=== PATIENT | female | born 1960 | race Caucasian/White ===

== ENCOUNTER → 2016-09-25 | Outpatient (CLI) | payer BC ==
[~2016-09-25] MED LIST: ASPI-999 PO; BUDE0.5A IH; CITA40TA19; CPR500T PO; DULO60CA6 PO; ESTR1TAB27 PO; GABA600T2 PO; GBPN100C PO; HYDR1TAB PO; HYDR200T46 PO; HYDR480S10 GT; IPRA3AMP19 IH; MEDR2.5T6 PO; MELO15TA14 PO; METO10TA3; METR500T PO; MILN100T PO; OMEP40CA36 PO; POTA20TA15 PO; PREG25CA; TELM1TAB3 PO; TELM40T; TELM80TA5 PO
--- OUTSIDE RECORDS SUMMARY | 2016-09-25 14:09 | XMS REPORT | Continuity of Care Document ---
Author Author [facility] Organization [facility] Address Unknown Phone Unavailable Allergies Active Description Code Type Severity Reaction Onset Reported/Identified Relationship to Patient Clinical Status Yes Sulfa (Sulfonamide Antibiotics) [id number] Drug Allergy Unknown HIVES 05/15/2015 Medications Problems Date Dx Coded Attending Type Code Diagnosis Diagnosed By 12/23/2009 Ot 288.60 12/23/2009 Ot 401.9 12/23/2009 Ot 483.0 12/23/2009 Ot 493.92 12/23/2009 Ot 695.4 12/23/2009 Ot 723.1 12/23/2009 Ot 724.5 12/23/2009 Ot 729.1 12/23/2009 Ot 785.0 12/23/2009 Ot E932.0 03/18/2011 Ot 530.81 ESOPHAGEAL REFLUX 03/18/2011 Ot 535.40 OTH SPECIFIED GASTRITIS,W/O MENTION OF H 03/18/2011 Ot 710.0 SYST LUPUS ERYTHEMATOSIS 03/18/2011 Ot V10.82 HX-MALIG SKIN MELANOMA 03/18/2011 Ot V58.69 OTH MED,LT,CURRENT USE 08/28/2011 Ot 401.9 HYPERTENSION NOS 08/28/2011 Ot 780.57 UNSPECIFIED SLEEP APNEA 03/01/2012 Ot V58.69 OTH MED,LT,CURRENT USE 03/01/2012 Ot V58.83 ENCOUNTER FOR THERAPEUTIC DRUG MONITORIN 03/18/2012 Ot 276.1 HYPOSMOLALITY 03/18/2012 Ot 276.8 HYPOPOTASSEMIA 03/18/2012 Ot 403.90 HYPTNSV CHR KID DIS, UNSPEC, W CHR KD ST 03/18/2012 Ot 496 CHR AIRWAY OBSTRUCT NEC 03/18/2012 Ot 540.1 ABSCESS OF APPENDIX 03/18/2012 Ot 564.1 IRRITABLE BOWEL SYNDROME 03/18/2012 Ot 585.9 CHRONIC KIDNEY DISEASE, UNSPECIFIED 03/18/2012 Ot 729.1 MYALGIA AND MYOSITIS NOS 03/18/2012 Ot 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 06/14/2012 Ot V58.69 OTH MED,LT,CURRENT USE 06/14/2012 Ot V58.83 ENCOUNTER FOR THERAPEUTIC DRUG MONITORIN 09/13/2013 JACE RAMSEY DO Ot 724.02 SPINAL STENOSIS, LUMBAR REG, W/OUT NEURO 09/13/2013 JACE RAMSEY DO Ot V57.1 PHYSICAL THERAPY NEC 01/15/2015 Ot 786.05 01/15/2015 Ot 486 01/15/2015 Ot 722.10 01/15/2015 Ot 241.0 01/15/2015 Ot 241.1 01/15/2015 Ot 784.0 01/15/2015 Ot 241.0 01/15/2015 Ot 241.1 01/15/2015 Ot 787.20 01/15/2015 Ot 719.46 01/15/2015 Ot 789.00 01/15/2015 Ot V58.69 01/15/2015 Ot V58.83 01/15/2015 CAREY GOMEZ, DIPIKA Puga Ot 721.0 01/15/2015 CAREY GOMEZ, DIPIKA Puga Ot 721.3 01/15/2015 JOSE RAUL GOMEZ, ROSSY Knowles Ot 440.20 05/15/2015 HAYLEY GOMEZ, PARK Street Ot Z12.11 ENCOUNTER FOR SCREENING FOR MALIGNANT NE 05/15/2015 HAYLEY GOMEZ, P[address] Street Ot Z83.71 FAMILY HISTORY OF COLONIC POLYPS 12/09/2015 Ot 722.10 LUMBAR DISC DISPLACEMENT 12/09/2015 Ot 241.0 NONTOX UNINODULAR GOITER 12/09/2015 Ot 241.1 NONTOX MULTINODUL GOITER 12/09/2015 Ot 784.0 HEADACHE 12/09/2015 Ot 241.0 NONTOX UNINODULAR GOITER 12/09/2015 Ot 241.1 NONTOX MULTINODUL GOITER 12/09/2015 Ot 787.20 DYSPHAGIA, UNSPECIFIED 12/09/2015 Ot 719.46 JOINT PAIN-L/LEG 12/09/2015 Ot 789.00 ABDOMINAL PAIN, UNSPECIFIED SITE 12/09/2015 Ot V58.69 OTH MED,LT,CURRENT USE 12/09/2015 Ot V58.83 ENCOUNTER FOR THERAPEUTIC DRUG MONITORIN 12/09/2015 CAREY GOMEZ, DIPIKA Puga Ot 721.0 CERVICAL SPONDYLOSIS 12/09/2015 CAREY GOMEZ, DIPIKA Puga Ot 721.3 LUMBOSACRAL SPONDYLOSIS 12/09/2015 ROSSY BLUNT MD Ot 440.20 ATHEROSCLEROSIS [place] ARTERIES EXTREMIT 12/09/2015 HAYLEY GOMEZ, [address] Ot Z01.818 ENCOUNTER FOR OTHER PREPROCEDURAL EXAMIN 12/10/2015 SUE GOMEZ, SUNDAY Knowles Ot I10 ESSENTIAL (PRIMARY) HYPERTENSION 12/10/2015 SUE GOMEZ, SUNDAY Knowles Ot M32.9 SYSTEMIC LUPUS ERYTHEMATOSUS, UNSPECIFIE 12/10/2015 SUE GOMEZ, SUNDAY Knowles Ot R07.89 OTHER CHEST PAIN 12/14/2015 Ot 722.10 LUMBAR DISC DISPLACEMENT 12/14/2015 Ot 241.0 NONTOX UNINODULAR GOITER 12/14/2015 Ot 241.1 NONTOX MULTINODUL GOITER 12/14/2015 Ot 784.0 HEADACHE 12/14/2015 Ot 241.0 NONTOX UNINODULAR GOITER 12/14/2015 Ot 241.1 NONTOX MULTINODUL GOITER 12/14/2015 Ot 787.20 DYSPHAGIA, UNSPECIFIED 12/14/2015 Ot 719.46 JOINT PAIN-L/LEG 12/14/2015 Ot 789.00 ABDOMINAL PAIN, UNSPECIFIED SITE 12/14/2015 Ot V58.69 OTH MED,LT,CURRENT USE 12/14/2015 Ot V58.83 ENCOUNTER FOR THERAPEUTIC DRUG MONITORIN 12/14/2015 CAREY GOMEZ, DIPIKA Puga Ot 721.0 CERVICAL SPONDYLOSIS 12/14/2015 DIPIKA PATINO MD Ot 721.3 LUMBOSACRAL SPONDYLOSIS 12/14/2015 ROSSY BLUNT MD Ot 440.20 ATHEROSCLEROSIS [place] ARTERIES EXTREMIT 12/14/2015 HAYLEY GOMEZ, [address] Ot Z01.818 ENCOUNTER FOR OTHER PREPROCEDURAL EXAMIN 12/15/2015 ANTHONY GOMEZ, MASSIEL Street Ot R07.9 CHEST PAIN, UNSPECIFIED 12/19/2015 ANTHONY GOMEZ, MASSIEL Street Ot R07.9 CHEST PAIN, UNSPECIFIED 12/29/2015 ANTHONY GOMEZ, MASSIEL Street Ot R07.9 CHEST PAIN, UNSPECIFIED 01/12/2016 ANTHONY GOMEZ, MASSIEL Street Ot R07.9 CHEST PAIN, UNSPECIFIED 04/10/2016 Ot 241.1 NONTOX MULTINODUL GOITER 04/10/2016 Ot 784.0 HEADACHE 04/10/2016 Ot 241.0 NONTOX UNINODULAR GOITER 04/10/2016 Ot 241.1 NONTOX MULTINODUL GOITER 04/10/2016 Ot 787.20 DYSPHAGIA, UNSPECIFIED 04/10/2016 Ot 719.46 JOINT PAIN-L/LEG 04/10/2016 JOSE RAUL GOMEZ, ROSSY Knowles Ot 440.20 ATHEROSCLEROSIS [place] ARTERIES EXTREMIT 04/10/2016 ANTHONY GOMEZ, MASSIEL Street Ot R07.9 CHEST PAIN, UNSPECIFIED 05/13/2016 Ot 241.0 NONTOX UNINODULAR GOITER 05/13/2016 Ot 241.1 NONTOX MULTINODUL GOITER 05/13/2016 Ot 784.0 HEADACHE 05/13/2016 Ot 241.0 NONTOX UNINODULAR GOITER 05/13/2016 Ot 241.1 NONTOX MULTINODUL GOITER 05/13/2016 Ot 787.20 DYSPHAGIA, UNSPECIFIED 05/13/2016 Ot 719.46 JOINT PAIN-L/LEG 05/13/2016 Ot 789.00 ABDOMINAL PAIN, UNSPECIFIED SITE 05/13/2016 Ot V58.69 OTH MED,LT,CURRENT USE 05/13/2016 Ot V58.83 ENCOUNTER FOR THERAPEUTIC DRUG MONITORIN 05/13/2016 CAREY GOMEZ, DIPIKA Puga Ot 721.0 CERVICAL SPONDYLOSIS 05/13/2016 CAREY GOMEZ, DIPIKA Puga Ot 721.3 LUMBOSACRAL SPONDYLOSIS 05/13/2016 JOSE RAUL GOMEZ, ROSSY Knowles Ot 440.20 ATHEROSCLEROSIS [place] ARTERIES EXTREMIT 05/13/2016 HAYLEY GOMEZ, [address] Ot Z01.818 ENCOUNTER FOR OTHER PREPROCEDURAL EXAMIN 05/13/2016 ANTHONY GOMEZ, MASSIEL Street Ot R07.9 CHEST PAIN, UNSPECIFIED 05/22/2016 DALY STOKES CARGO TRIMMER Ot E78.5 HYPERLIPIDEMIA, UNSPECIFIED 05/22/2016 DALY STOKES APRN Ot R06.02 SHORTNESS OF BREATH 05/22/2016 DALY STOKES [employer] TRIMMER Ot R53.83 OTHER FATIGUE 05/22/2016 DALY STOKES APRN Ot R60.0 LOCALIZED EDEMA 06/10/2016 DALY STOKES APRN Ot M54.5 LOW BACK PAIN 06/10/2016 STOKES, ASHDEN N CARGO TRIMMER Ot M54.5 LOW BACK PAIN 06/12/2016 JOSE RAUL GOMEZ, ROSSY Knowles Ot M79.605 PAIN IN LEFT LEG 06/12/2016 JOSE RAUL GOMEZ, ROSSY Knowles Ot M79.9 SOFT TISSUE DISORDER, UNSPECIFIED 06/13/2016 DALY STOKES N CARGO TRIMMER Ot M54.5 LOW BACK PAIN 06/13/2016 JOSE RAUL GOMEZ, ROSSY Knowles Ot M79.605 PAIN IN LEFT LEG 06/13/2016 JOSE RAUL GOMEZ, ROSSY Knowles Ot M79.9 SOFT TISSUE DISORDER, UNSPECIFIED 06/21/2016 JOSE RAUL GOMEZ, ROSSY Knowles Ot M79.605 PAIN IN LEFT LEG 06/21/2016 JOSE RAUL GOMEZ, ROSSY Knowles Ot M79.9 SOFT TISSUE DISORDER, UNSPECIFIED 06/27/2016 ANTHONY GOMEZ, MASSIEL Street Ot R07.9 CHEST PAIN, UNSPECIFIED 07/03/2016 ROSSY BLUNT MD Ot M25.551 PAIN IN RIGHT HIP 07/03/2016 ROSSY BLUNT MD Ot M25.561 PAIN IN RIGHT KNEE 07/03/2016 ROSSY BLUNT MD Ot M25.562 PAIN IN LEFT KNEE 07/12/2016 ANTHONY GOMEZ, MASSIEL Street Ot R07.9 CHEST PAIN, UNSPECIFIED Procedures Code Description Performed By Performed On 47.01 03/16/2012 Results Encounters ACCT No. Visit Date/Time Discharge Status Pt. Type Provider Facility Loc./Unit Complaint [id number] 12/09/2015 13:09:00 2015 11:10:00 DIS Inpatient SUE GOMEZ, SUNDAY Knowles [facility] ICU CHEST PAIN,SOB [id number] 05/15/2015 06:58:00 2014 09:15:00 DIS Outpatient PARK HARDY MD [facility] SDC SCREEING; FAMILY HX POLYPS [id number] 05/11/2015 05:40:00 2014 23:59:59 CLS Outpatient PARK HARDY MD [facility] PREOP SCREENING; FAMILY HX POLYPS [id number] 02/01/2014 10:22:00 2013 23:59:59 CLS Outpatient ROSSY BLUNT MD [facility] RAD PERIFIAL VAS DISEASE [id number] 08/26/2013 14:15:00 2013 14:18:00 DIS Outpatient JACE RAMSEY DO [facility] REHAB LUMBAR STENOSIS [id number] 07/06/2013 13:31:00 2012 23:59:59 CLS Outpatient DIPIKA PATINO MD [facility] RAD RADICULOPATHY [id number] 12/31/2012 12:06:00 2012 23:59:59 CLS Outpatient [id number] 06/19/2016 13:39:00 ACT Outpatient ROSSY BLUNT MD [facility] RAD PAIN IN RIGHT HIP IN BOTH KNEES [id number] 06/12/2016 11:17:00 ACT Outpatient ROSSY BLUNT MD [facility] RAD PAIN IN LEFT LEG HIP [id number] 06/07/2016 17:04:00 ACT Outpatient DALY STOKES APRN [facility] RAD LOW BACK PAIN, PAIN IN LOWER LIMB [id number] 05/13/2016 11:26:00 ACT Outpatient DALY STOKES APRN [facility] RAD LOCALIZED EDEMA,FATIGUE [id number] 12/14/2015 07:34:00 ACT Outpatient ANTHONY GOMEZ , [address] [facility] CARD IML;CHEST PAIN [id number] 01/15/2015 23:57:00 Document Registration [id number] 01/15/2015 23:56:00 Document Registration [id number] 01/15/2015 23:56:00 Document Registration [id number] 01/15/2015 23:56:00 Document Registration [id number] 01/15/2015 23:56:00 Document Registration [id number] 06/15/2012 00:00:00 Document Registration [id number] 03/31/2012 13:36:00 Document Registration [id number] 03/16/2012 23:10:00 Document Registration [id number] 03/16/2012 10:43:00 Document Registration [id number] 12/02/2011 13:48:00 Document Registration [id number] 09/26/2011 13:16:00 Document Registration [id number] 09/09/2011 11:05:00 Document Registration [id number] 08/30/2011 14:16:00 Document Registration [id number] 08/27/2011 21:05:00 Document Registration [id number] 08/05/2011 10:28:00 Document Registration [id number] 03/18/2011 09:27:00 Document Registration [id number] 01/24/2011 12:21:00 Document Registration [id number] 11/15/2010 08:06:00 Document Registration [id number] 12/20/2009 14:45:00 Document Registration [id number] 12/15/2009 16:47:00 Document Registration [id number] 08/17/2009 11:01:00 Document Registration
[2016-09-25 14:28] LABS: MEAN PLATELET VOLUME 9.1 FL (7.4-10.4); RED BLOOD COUNT 4.73 10^6/uL (4.35-5.85); WHITE BLOOD COUNT 6.1 10^3/uL (4.3-11.0)
[2016-09-25 14:47] LABS: ALANINE AMINOTRANSFERASE 31 U/L (0-55); ALBUMIN 4.1 G/DL (3.2-4.5); ANION GAP 12 MMOL/L (5-14); ASPARTATE AMINO TRANSFERASE 22 U/L (5-34); BILIRUBIN,TOTAL 0.5 MG/DL (0.1-1.0); BLOOD UREA NITROGEN 11 MG/DL (7-18); BUN/CREATININE RATIO 13; CALCIUM 9.2 MG/DL (8.5-10.1); CARBON DIOXIDE 22 MMOL/L (21-32); CHLORIDE 103 MMOL/L (98-107); CHOLESTEROL 207 MG/DL (< 200); CREATININE SERUM 0.82 MG/DL (0.60-1.30); DIRECT LDL 137 MG/DL (1-129); GFR ESTIMATED > 60; GLUCOSE 92 MG/DL (70-105); POTASSIUM 4.1 MMOL/L (3.6-5.0); SODIUM 137 MMOL/L (135-145); TOTAL PROTEIN 6.9 G/DL (6.4-8.2); TRIGLYCERIDES 182 MG/DL (<150); VLDL CHOLESTEROL 36 MG/DL (5-40)
[2016-09-25 15:10] LABS: THYROID STIMULATING HORMONE 2.79 UIU/ML (0.35-4.94)
== END ==
LOC: LAB 14:04
DX: L93.0 Discoid lupus erythematosus (principal); I10 Essential (primary) hypertension; E78.5 Hyperlipidemia, unspecified
CPT/HCPCS: 36415; 80053; 80061; 84443; 85027; 85652; 86038; 86430

== ENCOUNTER → 2018-06-22 | Outpatient (CLI) | payer BC ==
[~2018-06-22] MED LIST changes: -TELM80TA5 PO; +TELM80TA8 PO
--- NOTE | 2018-06-23 20:02 | Diagnostic Imaging Report ---
INDICATION: Routine screening. Patient's prior mammograms are not available for comparison. 2-D and 3-D bilateral screening mammography was performed with computer-aided detection (CAD) system. FINDINGS: Both breasts are heterogeneously dense, limiting the sensitivity of mammography. There is a slightly lobulated density in the outer portion of the right breast at mid depth. This appears to be near the nipple line on the MLO view. Additional views are recommended. A slightly irregular density is noted in the outer left breast at posterior depth. This appears to be inferiorly located on the tomographic views. Additional views are recommended. Axillae are unremarkable. There are no suspicious calcifications. IMPRESSION: Bilateral breast densities. Additional views are recommended for further evaluation. ACR BI-RADS Category 0: Incomplete. (Needs additional imaging evaluation). Result letter will be mailed to the patient. Note: At least 10% of breast cancer is not imaged by mammography. Dictated by: Dictated on workstation # [id number]
== END ==
LOC: RAD 13:38
DX: Z12.31 Encounter for screening mammogram for malignant neoplasm of breast (principal)
CPT/HCPCS: 77067

== ENCOUNTER → 2018-07-22 | Outpatient (CLI) | payer BC ==
--- NOTE | 2018-07-22 17:08 | Diagnostic Imaging Report ---
INDICATION: Abnormal mammogram. EXAMINATION: Bilateral breast ultrasound. FINDINGS: The diagnostic mammogram performed earlier today noted a smooth roughly 1.5 cm oval density in the midportion of the right breast. On this study, there is a fairly well-circumscribed 0.9 x 0.7 x 0.6 cm hypoechoic avascular mass in the 9:30 position, roughly 4 cm from the nipple. I do suspect that this corresponds to the density seen on the mammogram. This finding has a generally benign appearance and this may represent either a small solid benign tumor or a cyst which has been complicated by infection or hemorrhage. The possibility that this is neoplastic in nature cannot be entirely excluded, however. An ultrasound-guided biopsy would be recommended to establish a tissue diagnosis. The mammogram also identified a small area of spiculation in the upper-outer aspect of the left breast. In this area, there is a 0.0 x 0.4 x 0.4 cm taller than wide hypoechoic area of shadowing. I do suspect that this corresponds to the finding of the mammogram and most likely this represents a small neoplastic focus. An ultrasound-guided biopsy would be recommended for further study. During the course of the exam, a 1.5 x 1.1 x 0.8 cm lymph node was seen in the left axilla. This lymph node is prominent but there is evidence for replacement of the lymph node cortex. IMPRESSION: 1. The small subcentimeter oval lesion in the right breast is most likely a benign process while the taller than wide area of shadowing in the upper-outer aspect of the left breast is suspicious for neoplasm. An ultrasound-guided biopsy of both of these areas would be recommended for further evaluation. 2. These results were discussed with Dr. Estrada. ACR BI-RADS Category 4: Suspicious abnormality. Result letter will be mailed to the patient. Note: At least 10% of breast cancer is not imaged by mammography. CRITICAL FINDING Dictated by: Dictated on workstation # [id number]
--- NOTE | 2018-07-22 18:32 | Diagnostic Imaging Report ---
EXAMINATION: Bilateral diagnostic mammogram with 3D tomosynthesis and computer-aided detection (CAD) system. INDICATION: Abnormal screening mammogram. FINDINGS: The screening mammogram performed on 06/22/2018 noted a slightly lobulated density in the lateral aspect of the right breast at mid depth. The compression views of this area show that it has a generally benign appearance. Even so, ultrasound would be recommended to better characterize it. The previous study also astutely noted a slightly irregular density in the lateral aspect of the left breast at posterior depth on the craniocaudad view. On the compression and rolled views of this area, this density seems to persist. This density has a spiculated appearance, and I am concerned that this may represent a small malignancy. Ultrasound would be recommended for further evaluation. IMPRESSION: Ultrasound of both breasts would be recommended for further evaluation. ACR BI-RADS Category 0: Incomplete. (Needs additional imaging evaluation). Result letter will be mailed to the patient. Note: At least 10% of breast cancer is not imaged by mammography. Dictated by: Dictated on workstation # [id number]
== END ==
LOC: RAD 12:35
DX: N63.42 Unspecified lump in left breast, subareolar (principal); N64.89 Other specified disorders of breast
CPT/HCPCS: 76642; 77066

== ENCOUNTER 2019-06-16 14:08 | Outpatient (RCR) | payer BC ==
[~2019-06-16 14:08] MED LIST changes: -GABA600T2 PO; +GBPN600T PO
== END 2019-07-13 | disposition home or self-care (01) ==
LOC: ONC 14:08
PROVIDERS: ATTEND Radiology Radiation Oncology
DX: Z51.0 Encounter for antineoplastic radiation therapy (principal); C50.912 Malignant neoplasm of unspecified site of left female breast; D05.11 Intraductal carcinoma in situ of right breast
CPT/HCPCS: 77290; 77295; 77300; 77307; 77334; 77336; 77417; 77470; 99204

== ENCOUNTER 2020-02-22 05:51 | Outpatient (CLI) | payer BC ==
[~2020-02-22] VITALS: Ht 167.7 cm; Wt 131.8 kg
[~2020-02-22 05:51] MED LIST changes: +OMEP40CA27 PO; -OMEP40CA36 PO
[2020-02-22] MEDS ORDERED: ROSU20TA32 PO (13:20)
[2020-02-22] MEDS ORDERED: CELE400C10 PO (13:20)
[2020-02-22] MEDS ORDERED: DULO60CA59 PO (13:20)
[2020-02-22] MEDS ORDERED: APIX5TAB PO (13:20)
[2020-02-22] MEDS ORDERED: ANAS1TAB50 PO (13:20)
== END 2020-02-22 13:26 | disposition home or self-care (01) ==
LOC: PREOP 05:51 → EDSTATUS 16:00
PROVIDERS: ATTEND Specialist
DX: Z01.818 Encounter for other preprocedural examination (principal)

== ENCOUNTER 2020-03-06 05:51 | Outpatient (CLI) | payer BC ==
[~2020-03-06 05:51] MED LIST changes: +ANAS1TAB50 PO; +APIX5TAB PO; +CELE400C10 PO; +DULO60CA59 PO; +ROSU20TA32 PO
== END 2020-03-06 15:15 | disposition home or self-care (01) ==
LOC: PREOP 05:51
PROVIDERS: ATTEND Specialist
DX: Z01.818 Encounter for other preprocedural examination (principal)

== ENCOUNTER 2020-03-10 10:20 | Day surgery (SDC) | payer BC ==
[~2020-03-10] VITALS: Ht 160 cm
[2020-03-10 10:30] VITALS: BP 147/89
[2020-03-10] MEDS ORDERED: TIMOLOL MALEATE 0.5% 5 ML (TIMOPTIC) BTL OU PRN (10:30)
[2020-03-10] MEDS ORDERED: POVIDONE (BETADINE) OPHTH SOLN 5% 30 ML OP ONE (10:30)
[2020-03-10] MEDS ORDERED: LIDOCAINE PF 1% 2 ML VIAL IR PRN (10:30)
[2020-03-10] MEDS ORDERED: MOXIFLOXACIN OPHTH SOLN 5 MG/ML 0.3 ML SYRINGE OP ONE (10:30)
[2020-03-10] MEDS ORDERED: MIDAZOLAM 2 MG/2 ML (VERSED) VIAL ONE (10:38)
[2020-03-10] MEDS: TETRACAINE 0.5% OPHTH SOLN 4 ML BTL (SINGLE DOSE ONLY) OU PRN ×5 (10:41→11:01)
[2020-03-10] MEDS: PHENYLEPHRINE 10% OPHTH (NEO-SYN) 5 ML BTL OU SCH ×3 (10:50→11:01)
[2020-03-10] MEDS: CYCLOPENTOLATE 1% (CYCLOGYL) 2 ML DROPS OP SCH ×3 (10:50→11:01)
--- NOTE | 2020-03-10 10:53 | Ophthalmologist Pre-Op Note ---
Pre-Operative Progress Note H&P Reviewed The H&P was reviewed, patient examined and no changes noted. Date H&P Reviewed: Mar 10, 2020 Time H&P Reviewed: 10:53 Pre-Op Dx Cataract, Right Eye LIONEL VILLASENOR MD Mar 10, 2020 10:53
--- NOTE | 2020-03-10 11:30 | Ophthalmology Operative Report ---
Cataract removal/placement IOL PREOPERATIVE DIAGNOSIS: Cataract Right Eye POSTOPERATIVE DIAGNOSIS: Cataract Right Eye PROCEDURE: Cataract removal and placement of posterior chamber implant, right eye SURGEON: Lj Villasenor ANESTHESIA: Topical with sedation COMPLICATIONS: None ESTIMATED BLOOD LOSS: Minimal DESCRIPTION OF PROCEDURE: After proper informed consent was obtained, the patient, a 59 female, was taken to the Operating Room and the right eye was anesthetized with tetracaine. The right eye was then prepped and draped in the usual manner. A wire lid speculum was placed. A paracentesis was made at the left hand position. Preservative free lidocaine was injected into the anterior chamber followed by viscoelastic. A clear corneal incision was made in the temporal position. A capsulorrhexis was preformed and the central nuclear and cortical material were removed. The posterior capsule was polished and Dwayne 20.0 AU00T0 IOL was placed into the capsular bag. The residual viscoelastic was aspirated and balanced saline solution was injected into the anterior chamber. Moxifloxacin was injected into the anterior chamber. The wound was checked and found to be water tight. The patient tolerated the procedure well without complications. LJ VILLASENOR MD Mar 10, 2020 11:30
[2020-03-10 11:40] VITALS: BP 113/61
--- NOTE | 2020-03-10 12:21 | Anesthesia-General Post-Op ---
MAC Patient Condition Mental Status/LOC: Same as Preop Cardiovascular: Satisfactory Nausea/Vomiting: Absent Respiratory: Satisfactory Pain: Controlled Complications: Absent Post Op Complications Complications None Follow Up Care/Instructions Patient Instructions None needed. Anesthesiology Discharge Order Discharge Order Patient is doing well, no complaints, stable vital signs, no apparent adverse anesthesia problems. No complications reported per nursing. ARIAN HERRERA CRNA Mar 10, 2020 12:21
== END 2020-03-10 11:40 | disposition home or self-care (01) ==
LOC: SDC 10:20
PROVIDERS: ATTEND Specialist
DX: H25.11 Age-related nuclear cataract, right eye (principal); I10 Essential (primary) hypertension; E78.5 Hyperlipidemia, unspecified; G47.33 Obstructive sleep apnea (adult) (pediatric); G62.9 Polyneuropathy, unspecified; M32.9 Systemic lupus erythematosus, unspecified; K21.9 Gastro-esophageal reflux disease without esophagitis; Z86.718 Personal history of other venous thrombosis and embolism; Z85.3 Personal history of malignant neoplasm of breast; Z79.01 Long term (current) use of anticoagulants; Z79.899 Other long term (current) drug therapy; Z88.2 Allergy status to sulfonamides
CPT/HCPCS: 66984; V2632

== ENCOUNTER 2020-07-28 15:00 | Emergency (ER) | payer BC, OTHER ==
[~2020-07-28] VITALS: Ht 165 cm; Wt 136.0 kg
--- NOTE | 2020-07-28 15:36 | ED General ---
General Stated Complaint: SOB,COVID + Source of Information: Patient Exam Limitations: No Limitations History of Present Illness Date Seen by Provider: Jul 28, 2020 Time Seen by Provider: 15:30 Initial Comments Well appearing 60 yo female presents via POV with c/o of increasing SOA x 3 days. States she tested positive for COVID today, but her symptoms started 9 days ago with fevers, loss of taste and smell, nausea and diarrhea. Her only complaint today is shortness of breath. States she has a history of a PE in 02/2019, but has been on Eliquis 5mg PO BID since. Allergies and Home Medications Allergies Coded Allergies: Sulfa (Sulfonamide Antibiotics) (Verified Allergy, Unknown, HIVES, 06/05/09) Home Medications Albuterol Sulfate 1 Puff Puff, 2 PUFF INH Q4H PRN for SHORTNESS OF BREATH 1 PUFF = 90 MCG Prescribed by: HELENA NUNEZ on 07/28/20 1737 Anastrozole 1 Mg Tablet, 1 MG PO DAILY, (Reported) Apixaban 5 Mg Tablet, 5 MG PO BID, (Reported) Celecoxib 400 Mg Capsule, 400 MG PO DAILY, (Reported) Duloxetine HCl 60 Mg Capsule.dr, 60 MG PO BID, (Reported) Gabapentin 600 Mg Tablet, 600 MG PO TID, (Reported) Rosuvastatin Calcium 20 Mg Tablet, 20 MG PO DAILY, (Reported) Telmisartan 80 Mg Tablet, 80 MG PO DAILY, (Reported) Patient Home Medication List Home Medication List Reviewed: Yes Review of Systems Review of Systems Constitutional: no symptoms reported EENTM: no symptoms reported Respiratory: see HPI Cardiovascular: no symptoms reported Gastrointestinal: no symptoms reported Genitourinary: no symptoms reported Musculoskeletal: no symptoms reported Skin: no symptoms reported Psychiatric/Neurological: No Symptoms Reported Hematologic/Lymphatic: No Symptoms Reported Immunological/Allergic: no symptoms reported Past Wjwfzje-Gndwwc-Hlagsr Hx Patient Social History Former Smoker, Quit: Feb 19, 2008 Recent Foreign Travel: No Contact w/Someone Who Travel: No Past Medical History Appendectomy Reproductive Disorders: No Sexually Transmitted Disease: No Gall Bladder Disease, Irritable Bowel Rheumatoid Arthritis, Scoliosis, Chronic Back Pain Loss of Vision: Denies Psoriasis Family Medical History Alzheimer's disease 19 MOTHER Arthritis 19 MOTHER Asthma G8 SISTER Bone cancer G8 SISTER ( at 20 years ) Cataracts 19 MOTHER Diabetes mellitus 19 MOTHER FH: heart disease 19 FATHER 19 MOTHER FH: lung disease 19 FATHER Headache disorder 19 MOTHER Hypercholesterolemia 19 MOTHER Hypertension 19 MOTHER G8 SISTER Thyroid disease G8 SISTER No Pertinent Family Hx Physical Exam Vital Signs Vital Signs - First Documented 07/28/20 15:23 Temp 37.0 Pulse 98 Resp 20 B/P (MAP) 122/86 (98) Pulse Ox 97 O2 Delivery Room Air Capillary Refill : Height, Weight, BMI Height: 5'6.00" Weight: 300lbs. 0.0oz. [id number]; 48.4 BMI Method:Stated General Appearance: No Apparent Distress, WD/WN Eyes: Bilateral Eye Normal Inspection, Bilateral Eye PERRL, Bilateral Eye EOMI HEENT: PERRL/EOMI, Pharynx Normal, Moist Mucous Membranes Neck: Full Range of Motion, Normal Inspection, Non Tender, Supple; No JVD Respiratory: Lungs Clear, Normal Breath Sounds, No Accessory Muscle Use Cardiovascular: Regular Rate, Rhythm, No Edema, Normal Peripheral Pulses Gastrointestinal: Normal Bowel Sounds, Non Tender, Soft Extremity: Normal Capillary Refill, Normal Inspection, Normal Range of Motion, No Pedal Edema Neurologic/Psychiatric: Alert, Oriented x3, No Motor/Sensory Deficits, Normal Mood/Affect Skin: Normal Color, Warm/Dry; No Rash Focused Exam Lactate Level 07/28/20 16:46: Lactic Acid Level 1.12 Lactic Acid Level Progress/Results/Core Measures Suspected Sepsis SIRS Temperature: Pulse: Respiratory Rate: Laboratory Tests 07/28/20 15:30: White Blood Count 8.7 Blood Pressure / Mean: 07/28/20 16:46: Lactic Acid Level 1.12 Laboratory Tests 07/28/20 15:30: Creatinine 0.79, INR Comment 1.1, Platelet Count 218, Total Bilirubin 0.4 Results/Orders Lab Results Laboratory Tests Test 07/28/20 15:30 07/28/20 16:46 Range/Units White Blood Count 8.7 4.3-11.0 10^3/uL Red Blood Count 4.25 3.80-5.11 10^6/uL Hemoglobin 12.2 11.5-16.0 g/dL Hematocrit 37 35-52 % Mean Corpuscular Volume 87 80-99 fL Mean Corpuscular Hemoglobin 29 25-34 pg Mean Corpuscular Hemoglobin Concent 33 32-36 g/dL Red Cell Distribution Width 13.7 10.0-14.5 % Platelet Count 218 130-400 10^3/uL Mean Platelet Volume 9.1 9.0-12.2 fL Immature Granulocyte % (Auto) 1 % Neutrophils (%) (Auto) 74 42-75 % Lymphocytes (%) (Auto) 16 12-44 % Monocytes (%) (Auto) 9 0-12 % Eosinophils (%) (Auto) 1 0-10 % Basophils (%) (Auto) 1 0-10 % Neutrophils # (Auto) 6.5 1.8-7.8 10^3/uL Lymphocytes # (Auto) 1.4 1.0-4.0 10^3/uL Monocytes # (Auto) 0.8 0.0-1.0 10^3/uL Eosinophils # (Auto) 0.0 0.0-0.3 10^3/uL Basophils # (Auto) 0.0 0.0-0.1 10^3/uL Immature Granulocyte # (Auto) 0.1 0.0-0.1 10^3/uL Prothrombin Time 14.9 H 12.2-14.7 SEC INR Comment 1.1 0.8-1.4 Activated Partial Thromboplast Time 31 24-35 SEC D-Dimer 0.38 0.00-0.49 UG/ML Sodium Level 127 L 135-145 MMOL/L Potassium Level 4.0 3.6-5.0 MMOL/L Chloride Level 96 L 98-107 MMOL/L Carbon Dioxide Level 22 21-32 MMOL/L Anion Gap 9 5-14 MMOL/L Blood Urea Nitrogen 12 7-18 MG/DL Creatinine 0.79 0.60-1.30 MG/DL Estimat Glomerular Filtration Rate > 60 BUN/Creatinine Ratio 15 Glucose Level 102 70-105 MG/DL Calcium Level 8.5 8.5-10.1 MG/DL Corrected Calcium 8.7 8.5-10.1 MG/DL Ferritin 581.7 H 20.0-177.0 ng/mL Total Bilirubin 0.4 0.1-1.0 MG/DL Aspartate Amino Transf (AST/SGOT) 41 H 5-34 U/L Alanine Aminotransferase (ALT/SGPT) 48 0-55 U/L Alkaline Phosphatase 167 H 40-136 U/L Lactate Dehydrogenase 240 H 125-220 U/L Troponin I < 0.028 <0.028 NG/ML C-Reactive Protein High Sensitivity 1.53 H 0.00-0.50 MG/DL Total Protein 6.6 6.4-8.2 GM/DL Albumin 3.7 3.2-4.5 GM/DL Lactic Acid Level 1.12 0.50-2.00 MMOL/L Micro Results Microbiology 07/28/20 Blood Culture - Preliminary, Resulted No growth 07/28/20 Blood Culture - Preliminary, Resulted No growth My Orders Orders - HELENA NUNEZ APRN Ed Iv/Invasive Line Start (07/28/20 15:22) Cbc With Automated Diff (07/28/20 15:22) Comprehensive Metabolic Panel (07/28/20 15:22) Ferritin (07/28/20 15:22) LDH (07/28/20 15:22) Hs C Reactive Protein (07/28/20 15:22) Troponin I (07/28/20 15:22) Lactic Acid Analyzer (07/28/20 15:22) Protime With Inr (07/28/20 15:22) Partial Thromboplastin Time (07/28/20 15:22) Fibrin Degradation Products (07/28/20 15:22) Ekg Tracing (07/28/20 15:22) Chest 1 View, Ap/Pa Only (07/28/20 15:22) Blood Culture (07/28/20 15:22) O2 (07/28/20 15:22) Vital Signs/I&O Capillary Refill : Progress Note : Progress Note Upon arrival she is no acute distress. VSS. SpO2 97-99% on room air. COVID workup initiated, with Ddimer and CXR. CXR shows NAD. Ddimer neg. Sodium low at 127, which is likely from COVID. Will need to f/u for repeat labs. Reviewed findings with patient, states she feels relieved as she was concerned for another PE. Reviewed discharge plan to use Albuterol inh. for shortness of air and to continue her Eliquis as previously directed. Return for any new or worsening symptoms. Verbalized understanding. ECG Initial ECG Impression Date: Jul 28, 2020 Initial ECG Impression Time: 15:33 Initial ECG Rate: 87 Initial ECG Rhythm: Normal Sinus Initial ECG Intervals RBBB Initial ECG Comparisson: Unchanged Diagnostic Imaging Diagonstic Imaging: Xray Plain Films/CT/US/NM/MRI: chest Comments NAME: SUZETTE DRISCOLL MED REC#: [id number] PT STATUS: REG ER : 1960 PHYSICIAN: HELENA NUNEZ ANALYST PROGRAMMER ADMIT DATE: 07/28/20/ER Signed Date of Exam:07/28/20 CHEST 1 VIEW, AP/PA ONLY INDICATION: Shortness of breath. Frontal chest obtained at 4:38 p.m. and compared to 12/09/2015. Heart is borderline in size. There is mild central vascular prominence with no focal infiltrate or pneumothorax or pleural fluid. Port-A-Cath over the right chest has a tip overlying the SVC. IMPRESSION: Borderline heart size and mild central vascular prominence. No acute consolidation or pleural fluid. Dictated by: Dictated on workstation # [id number] Dict: 07/28/20 1711 Trans: 07/28/20 1740 CVB [id number] Interpreted by: CRAIG GALLAGHER MD Electronically signed by: CRAIG GALLAGHER MD 07/28/20 1740 Departure Impression Primary Impression: COVID-19 Disposition: 01 HOME, SELF-CARE Condition: Improved Departure-Patient Inst. Decision time for Depature: 17:35 Ref[facility]: [facility] [place] Primary Care Physician Patient Instructions: Coronavirus Disease 2019 (COVID-19) ED Add. Discharge Instructions: Plan: 1. Discharge home. Use incentive spirometer every two hours to prevent pneumonia. 2. May take Tylenol or Ibuprofen as needed for pain per package instructions. 3. Use Albuterol inhaler 4 puffs every four hours as needed for shortness of breath/wheezing. 4. Return for any new or concerning symptoms. Follow up with your primary care provider to re-assess your sodium level. Scripts Albuterol Sulfate (VENTOLIN HFA) 1 Puff Puff 2 PUFF INH Q4H PRN for SHORTNESS OF BREATH for 30 Days, #1 INHALER 0 Refills 1 PUFF = 90 MCG Prov: HELENA NUNEZ ANALYST PROGRAMMER 07/28/20 HELENA NUNEZ ANALYST PROGRAMMER Jul 28, 2020 15:36
[2020-07-28 16:15] LABS: BASOPHILS % (AUTO) 1 % (0-10); EOSINOPHILS % (AUTO) 1 % (0-10); HEMATOCRIT 37 % (35-52); HEMOGLOBIN 12.2 g/dL (11.5-16.0); LYMPHOCYTES # (AUTO) 1.4 10^3/uL (1.0-4.0); LYMPHOCYTES % (AUTO) 16 % (12-44); MEAN CORPUSCULAR HEMOGLOBIN 29 pg (25-34); MEAN CORPUSCULAR HGB CONC 33 g/dL (32-36); MEAN CORPUSCULAR VOLUME 87 fL (80-99); MEAN PLATELET VOLUME 9.1 fL (9.0-12.2); MONOCYTES # (AUTO) 0.8 10^3/uL (0.0-1.0); MONOCYTES % (AUTO) 9 % (0-12); NEUTROPHILS # (AUTO) 6.5 10^3/uL (1.8-7.8); NEUTROPHILS % (AUTO) 74 % (42-75); PLATELET COUNT 218 10^3/uL (130-400); WHITE BLOOD COUNT 8.7 10^3/uL (4.3-11.0)
[2020-07-28 16:25] LABS: ALBUMIN 3.7 GM/DL (3.2-4.5); CHLORIDE 96 MMOL/L (98-107); SODIUM 127 MMOL/L (135-145)
[2020-07-28 16:26] LABS: CALCIUM 8.5 MG/DL (8.5-10.1)
[2020-07-28 16:27] LABS: GLUCOSE 102 MG/DL (70-105); TOTAL PROTEIN 6.6 GM/DL (6.4-8.2)
[2020-07-28 16:29] LABS: BILIRUBIN,TOTAL 0.4 MG/DL (0.1-1.0); CARBON DIOXIDE 22 MMOL/L (21-32)
[2020-07-28 16:31] LABS: ALKALINE PHOSPHATASE 167 U/L (40-136); CREATININE SERUM 0.79 MG/DL (0.60-1.30); GFR ESTIMATED > 60
[2020-07-28 16:32] LABS: BUN/CREATININE RATIO 15
[2020-07-28 16:34] LABS: ALANINE AMINOTRANSFERASE 48 U/L (0-55)
[2020-07-28 16:51] LABS: FIBRIN DEGRADATION PRODUCTS 0.38 UG/ML (0.00-0.49); INR 1.1 (0.8-1.4); PROTHROMBIN TIME PATIENT 14.9 SEC (12.2-14.7)
--- NOTE | 2020-07-28 17:13 | Diagnostic Imaging Report ---
INDICATION: Shortness of breath. Frontal chest obtained at 4:38 p.m. and compared to 12/09/2015. Heart is borderline in size. There is mild central vascular prominence with no focal infiltrate or pneumothorax or pleural fluid. Port-A-Cath over the right chest has a tip overlying the SVC. IMPRESSION: Borderline heart size and mild central vascular prominence. No acute consolidation or pleural fluid. Dictated by: Dictated on workstation # [id number]
[2020-07-28] MEDS ORDERED: RT-ALBUINH INH (17:37)
[2020-07-28 17:55] VITALS: BP 117/82
== END 2020-07-28 17:55 | disposition home or self-care (01) ==
LOC: EDUNIT# 15:00 → ER 15:02
DX: U07.1 COVID-19 (principal); Z86.718 Personal history of other venous thrombosis and embolism; Z80.8 Family history of malignant neoplasm of other organs or systems; Z82.49 Family history of ischemic heart disease and other diseases of the circulatory system; Z88.2 Allergy status to sulfonamides; Z87.891 Personal history of nicotine dependence; Z79.01 Long term (current) use of anticoagulants
CPT/HCPCS: 36415; 36591; 71045; 80053; 82728; 83605; 83615; 84484; 85025; 85379; 85610; 85730; 86141; 87040; 93005

== ENCOUNTER → 2022-04-10 | Outpatient (CLI) | payer BC ==
[~2022-04-10] MED LIST changes: -OMEP40CA27 PO; +OMEP40CA6 PO; +RT-ALBUINH INH
--- NOTE | 2022-04-10 11:55 | Diagnostic Imaging Report ---
PROCEDURE: MR imaging cervical spine without contrast. TECHNIQUE: Multiplanar, multisequence MR imaging of the cervical spine was performed without contrast. INDICATION: Neck pain. No known injury. COMPARISON: 07/06/2013. FINDINGS: No acute fracture or dislocation is seen in the cervical spine. There is straightening of the cervical spine. The vertebral body heights and disc spaces are well maintained. The bone marrow signal is unremarkable. No focal osseous lesions. The craniocervical junction is maintained. The cervical spinal cord demonstrates normal intrinsic signal. No epidural collections are seen. The included brainstem and posterior fossa have normal appearance. Multilevel degenerative changes are seen in the cervical spine with posterior disc bulges and uncovertebral arthropathy. C2-C3: Uncovertebral arthropathy results in no significant spinal canal narrowing and moderate right and no left foraminal narrowing. C3-C4: No significant spinal canal or foraminal stenosis. C4-C5: Posterior disc bulge, buckling of the ligamentum flavum and uncovertebral arthropathy results in moderate to severe spinal canal stenosis and moderate right and moderate to severe left foraminal stenosis. C5-C6: Posterior disc bulge, buckling of the ligamentum flavum and uncovertebral arthropathy results in moderate to severe spinal canal stenosis and moderate to severe bilateral foraminal stenosis. C6-C7: Posterior disc bulge and uncovertebral arthropathy results in mild spinal canal narrowing and mild to moderate right and moderate left foraminal stenosis. C7-T1: No significant spinal canal or foraminal stenosis. The soft tissues of neck are unremarkable. IMPRESSION: 1. No acute fracture or dislocation of the cervical spine. 2. Multilevel degenerative changes in the cervical spine, greatest at C4-C5 and C5-C6. Dictated by: Dictated on workstation # [id number]
== END ==
LOC: RAD 10:15
PROVIDERS: ATTEND Family Medicine
DX: M47.812 Spondylosis without myelopathy or radiculopathy, cervical region (principal)
CPT/HCPCS: 72141

== ENCOUNTER → 2023-03-25 | Outpatient (CLI) | payer BC ==
[~2023-03-25] MED LIST changes: -ROSU20TA32 PO; +ROSU20TA73 PO
--- NOTE | 2023-03-25 17:54 | Diagnostic Imaging Report ---
INDICATION: Radiculopathy. COMPARISON: None FINDINGS: Flexion and extension views of the lumbar spine were obtained in the lateral projection and show mild grade 1 anterolisthesis at L4-L5. This is slightly more pronounced with flexion. There is no evidence of jumped facets. Vertebral body heights are maintained. IMPRESSION: 1. Mild grade 1 anterolisthesis at L4-L5 as above. Dictated by: Dictated on workstation # [id number]
== END ==
LOC: RAD 16:05
PROVIDERS: ATTEND Anesthesiology Pain Medicine
DX: M47.812 Spondylosis without myelopathy or radiculopathy, cervical region (principal); M47.816 Spondylosis without myelopathy or radiculopathy, lumbar region; M43.16 Spondylolisthesis, lumbar region
CPT/HCPCS: 72100